=== PATIENT | male | born 1990 | race Caucasian/White ===

== ENCOUNTER 2018-06-10 00:17 | Emergency (ER) | payer SELFPAY ==
[2018-06-10 00:45] VITALS: BP 160/80
--- NOTE | 2018-06-10 01:11 | XRay Report ---
PROCEDURE: XR CHEST 1V AP TECHNIQUE: Chest radiograph single view. HISTORY: Chest Pain COMPARISONS: None . FINDINGS: Heart: Normal. Mediastinum/Vessels: Normal. Lungs/Pleural space: Normal. Bony thorax: No acute osseous abnormality. Life support devices: None. IMPRESSION: No acute cardiopulmonary abnormality. This document is electronically signed by Darlene Esquivel DO., June 10 2018 01:09:17 AM ET
== END 2018-06-10 01:15 | disposition left against medical advice (07) ==
LOC: ED 00:17
DX: R07.89 Other chest pain (principal); Z53.21 Procedure and treatment not carried out due to patient leaving prior to being seen by health care provider
CPT/HCPCS: 71045; 93005; 93010